=== PATIENT | female | born 1960 | race Caucasian/White ===

== ENCOUNTER 2016-07-11 16:23 | Emergency (ER) | payer SELFPAY ==
[~2016-07-11] VITALS: Ht 160 cm; Wt 53.5 kg
[~2016-07-11 16:23] MED LIST: CYCL-319 PO; HYDR-3498 PO; IBUP-1542 PO; MECL12.574 PO; METH500T PO
[2016-07-11 16:47] VITALS: Ht 160 cm; Wt 53.5 kg
== END 2016-07-11 22:07 | disposition left against medical advice (07) ==
LOC: FTE 16:23
DX: Z53.21 Procedure and treatment not carried out due to patient leaving prior to being seen by health care provider (principal)

== ENCOUNTER 2017-01-21 09:44 | Emergency (ER) | payer OTHER ==
[~2017-01-21] VITALS: Ht 157.5 cm; Wt 53.0 kg
[2017-01-21 09:54] VITALS: Ht 157.5 cm; Wt 53.0 kg
--- NOTE | 2017-01-21 10:42 | ERD ---
ER Documentation Chief Complaint Date/Time DATE: 01/21/17 TIME: 10:41 Chief Complaint COUGH X 11 DAYS HPI 36-year-old female history of diabetes presents with a cough for the past 11 days. It is been a dry cough, on and off throughout the day, associated with rhinorrhea. She was seen by her primary care doctor and was given Zithromax, Tessalon cough syrup as well as Ventolin inhaler. She states that the cough has been unchanged. She began with a fever at the initial onset for 3 days that has resolved. She denies hemoptysis, continuing fevers or chills. Denies chest pain or shortness of breath. She denies recent travel ROS All systems reviewed and are negative except as per history of present illness. Medications Home Meds Active Scripts Prednisone* (Prednisone*) 20 Mg Tab, 40 MG PO DAILY for 4 Days, TAB Prov:ALFA GONZALES PA-C 01/21/17 Benzonatate* (Tessalon Perle*) 100 Mg Capsule, 100 MG PO Q8H Y for COUGH, #30 CAP Prov:ALFA GONZALES PA-C 01/21/17 Meclizine Hcl* (Antivert*) 12.5 Mg Tab, 12.5 MG PO Q6H Y for DIZZY, #20 TAB Prov:BECKY ARMENDARIZ NP 08/03/15 Methocarbamol* (Robaxin*) 500 Mg Tab, 500 MG PO Q8, #30 TAB Prov:MATILDA STEELE MD 11/23/14 Ibuprofen* (Motrin*) 600 Mg Tab, 600 MG PO Q6, #20 TAB Prov:MATILDA STEELE MD 11/23/14 Hydrocodone Bit-Acetaminophen* (Amenia*) 5-325 Mg Tab, 1 TAB PO Q6 Y for PAIN, # 20 TAB Prov:MATILDA STEELE MD 11/23/14 Cyclobenzaprine Hcl* (Cyclobenzaprine Hcl*) 10 Mg Tablet, 10 MG PO TID, #21 TAB Prov:EMMA BRIGHT 11/18/14 Hydrocodone Bit-Acetaminophen* (Amenia*) 5-325 Mg Tab, 1 TAB PO Q6 Y for PAIN LEVEL 6-10, #10 TAB Prov:EMMA BRIGHT 11/18/14 Ibuprofen* (Motrin*) 600 Mg Tab, 600 MG PO Q6 for PAIN LEVEL 1-5, #15 TAB Prov:EMMA BRIGHT 11/18/14 Allergies Allergies: Coded Allergies: No Known Drug Allergy (Verified Allergy, Mild, 03/24/07) PMhx/Soc History of Surgery: Yes (CS x3) Anesthesia Reaction: No Hx Neurological Disorder: No Hx Respiratory Disorders: No Hx Cardiac Disorders: No Hx Psychiatric Problems: No Hx Miscellaneous Medical Probl: Yes (DM II) Hx Alcohol Use: No Hx Substance Use: No Hx Tobacco Use: No Physical Exam Vitals Vital Signs Date Time Temp Pulse Resp B/P Pulse Ox O2 Delivery O2 Flow Rate FiO2 01/21/17 09:54 98.0 85 18 131/75 98 Physical Exam General: Well-developed, well-nourished. The patient appears in no acute distress. HEENT: Head is normocephalic, atraumatic. No scleral icterus. Pupils are equal , round, and reactive. Oral mucous membranes are moist. No pharyngeal erythema. Neck: Supple. Nontender. Lungs: Clear to auscultation. Normal air movement. Heart: Regular rate and rhythm. S1 and S2 are normal. No murmurs, gallops, or rubs. Abdomen: Soft, nontender, nondistended. Bowel sounds are normoactive. Extremities: No clubbing or cyanosis. Normal pulses. Moving extremities x 4. No weakness. Neurologic: Alert and oriented 3. No focal deficits. Skin: Normal turgor. No rash or lesions. Results 24 hrs DIAGNOSTIC IMAGING REPORT Patient: AURELIO BYRD : 1960 Age: 56 Sex: F MR #: [id number] DOS: 01/21/17 1028 Ordering MD: ALFA GONZALES PA-C Location: [facility] Room/Bed: PROCEDURE: Chest Radiograph. CLINICAL INDICATION: Cough TECHNIQUE: Single frontal chest radiograph. COMPARISON: Chest radiograph 08/03/2015 FINDINGS: The cardiomediastinal silhouette is within normal limits. No infiltrate or effusion is seen. The bones are intact. IMPRESSION: 1. Unremarkable chest radiograph. RPTAT: KK .Casey Jay MD, Date Time Electronically viewed and signed by .Casey Jay MD, on 2016 11:00 .B/ CC: ALFA GONZALES PA-C Procedures/MDM 56-year-old female with a cough, likely viral. Patient completed antibiotics, is no longer having any fevers or chills, her pulmonary examination is normal chest x-ray is normal. She does not have any systemic complaints, she does not have any signs or symptoms to indicate congestive heart failure, acute coronary syndrome, pulmonary embolus, dissection, hypoxia or respiratory distress. Patient's blood pressure was elevated (>120/80) but appears stable without evidence of hypertension emergency or urgency. The patient was counseled about the risks of hypertension and urged to pursue outpatient monitoring and therapy within a week with their primary care physician. Departure Diagnosis: Primary Impression: Cough Condition: Good ALFA GONZALES PA-C Jan 21, 2017 10:42
--- NOTE | 2017-01-21 11:00 | RADRPT ---
PROCEDURE: Chest Radiograph. CLINICAL INDICATION: Cough TECHNIQUE: Single frontal chest radiograph. COMPARISON: Chest radiograph 08/03/2015 FINDINGS: The cardiomediastinal silhouette is within normal limits. No infiltrate or effusion is seen. Th e bones are intact. IMPRESSION: 1. Unremarkable chest radiograph. RPTAT: KK .Casey Jay MD, MD Date Time Electronically viewed and signed by .Casey Jay MD, on 01/21/2017 11:00 .B/
[2017-01-21] MEDS ORDERED: BENZ100C70 PO (11:19)
[2017-01-21] MEDS ORDERED: PRED20TA PO (11:19)
== END 2017-01-21 11:31 | disposition home or self-care (01) ==
LOC: FTE 09:44
DX: R05 Cough (principal); E11.9 Type 2 diabetes mellitus without complications
CPT/HCPCS: 71010; Z7502

== ENCOUNTER 2017-11-05 14:11 | Emergency (ER) | END 2017-11-05 20:11 | disposition home or self-care (01) ==

== ENCOUNTER 2018-08-28 11:38 | Day surgery (SDC) | payer OTHER ==
[~2018-08-28] VITALS: Ht 154.9 cm; Wt 54.5 kg
[~2018-08-28 11:38] MED LIST changes: +ATOR10TA65 PO; -CYCL-319 PO; +GABA-526 PO; -HYDR-3498 PO; -IBUP-1542 PO; +INSU100I33 SC; -MECL12.574 PO; +MELO15TA30 PO; +METF100010 PO; -METH500T PO
[2018-08-28 12:28] VITALS: Ht 154.9 cm; Wt 54.5 kg
== END 2018-08-28 12:51 | disposition home or self-care (01) ==
LOC: GIL 11:38
PROVIDERS: ATTEND Internal Medicine Gastroenterology
DX: R10.13 Epigastric pain (principal); Z53.8 Procedure and treatment not carried out for other reasons

== ENCOUNTER 2018-09-08 12:15 | Day surgery (SDC) | payer OTHER ==
[~2018-09-08] VITALS: Ht 154.9 cm; Wt 52.4 kg
[2018-09-08 13:09] VITALS: Ht 154.9 cm; Wt 52.4 kg
--- NOTE | 2018-09-08 13:12 | PREAC ---
Date/Time of Note Date/Time of Note DATE: 09/08/18 TIME: 13:11 Anesthesia Eval and Record Evaluation Time Pre-Procedure Interview DATE: 09/08/18 TIME: 13:11 Age 58 Sex female NPO: 8 hrs Preoperative diagnosis gerd Planned procedure egd Past Medical History Past Medical History: Includes Cardio: Dyslipidemia Endo: Diabetes Musculoskeletal: Osteoarthritis GI: GERD Surgery & Anesthesia Issues No known issue Meds Anticoagulation: No Beta Jose within 24 hr: No Reason Beta Jose not given: Pt. not on B-Jose Reported Medications Gabapentin* (Gabapentin*) 600 Mg Tablet, 600 MG PO TID, #90 TAB 11/05/17 Meloxicam* (Mobic*) 15 Mg Tablet, 15 MG PO QAM, #30 TAB 11/05/17 Insulin Glargine,Hum.rec.anlog (Basaglar Kwikpen U-100) 100 Unit/1 Ml Insuln.pen, 20 UNIT SC QHS, EA 11/05/17 Metformin Hcl* (Metformin Hcl*) 1,000 Mg Tablet, 1000 MG PO WITH BREAKFAST DINNE, #60 TAB 11/05/17 Atorvastatin Calcium (Atorvastatin Calcium) 10 Mg Tablet, 10 MG PO QHS, #30 TAB 11/05/17 Meds reviewed: Yes Allergies Coded Allergies: No Known Drug Allergy (Verified Allergy, Mild, 11/05/17) Allergies Reviewed: Yes Labs/Studies Labs Reviewed: Reviewed by anesthesiologist test: N/A Studies: ECG Pre-procedure Exam Airway: Adequate mouth opening, Adequate thyromental dist Mallampati: Mallampati II Teeth: Normal Lung: Normal Heart: Normal ASA Physical Status ASA physical status: 2 Emergency: None Planned Anesthetic General/MAC: Mask Pre-operative Attestations Prior to commencing anesthesia and surgery, the patient was re-evaluated, there was verification of: *The patient's identity *The results of appropriate recent lab work and preoperative vital signs *The above evaluation not changing prior to induction *Anesthetic plan, risk benefits, alternative and complications discussed with patient/family; questions answered; patient/family understands, accepts and wishes to proceed. MARYANN CHUN Sep 08, 2018 13:12
[2018-09-08 13:25] VITALS: BP 127/71; PULSE 70; RESP 16
--- NOTE | 2018-09-08 13:50 | HPN ---
Date/Time of Note Date/Time of Note DATE: 09/08/18 TIME: 13:50 Interval H&P Admission Note Pt. seen H&P reviewed: No system changes TYRA OCHOA Sep 08, 2018 13:50
[2018-09-08 14:15] VITALS: BP 139/80; PULSE 68; RESP 23
--- NOTE | 2018-09-08 14:15 | PAC ---
Date/Time of Note Date/Time of Note DATE: 09/08/18 TIME: 14:15 Post-Anesthesia Notes Post-Anesthesia Note Last documented vital signs Vital Signs Date Temp Pulse Resp B/P (MAP) Pulse Ox O2 O2 Flow FiO2 Time Delivery Rate 09/08/18 96.9 70 16 127/71 98 Room Air 13:25 (89) Activity: WNL Respiratory function: WNL Cardiovascular function: WNL Mental status: Baseline Pain reasonably controlled: Yes Hydration appropriate: Yes Nausea/Vomiting absent: Yes MARYANN CHUN Sep 08, 2018 14:15
== END 2018-09-08 14:56 | disposition home or self-care (01) ==
LOC: GIL 12:15
PROVIDERS: ATTEND Internal Medicine Gastroenterology
DX: K21.0 Gastro-esophageal reflux disease with esophagitis (principal); E11.9 Type 2 diabetes mellitus without complications
CPT/HCPCS: 43239; 88305; 88312; 88313; Z7610